=== PATIENT | female | born 1975 | race Caucasian/White ===

== ENCOUNTER 2021-01-01 16:18 | Outpatient (CLI) | payer OTHER, SELFPAY ==
--- NOTE | ~2021-01-01 | MM_ITS ---
EXAMINATION: MM screening leann BI w yajaira HISTORY: Screening TECHNIQUE: Craniocaudal and mediolateral oblique 3-D tomosynthesis images were obtained and synthetic 2-D images were generated. CAD analysis was submitted and interpreted. COMPARISON: No prior mammogram is available for comparison at this institution. BREAST PARENCHYMAL COMPOSITION: There are scattered areas of fibroglandular density. FINDINGS: There is no evidence of suspicious mass, calcification, or architectural distortion to sugg est malignancy in either breast. There has been no suspicious interval change. IMPRESSION: 1. No mammographic evidence of malignancy. 2. Recommend routine screening mammography in one year. BI-RADS Category 1: Negative Reviewed, dictated and finalized at location [facility].
== END 2021-01-01 16:19 | disposition home or self-care (01) ==
LOC: ANHIMG 16:21
PROVIDERS: PCP Internal Medicine; Visit Provider Obstetrics & Gynecology
DX: Z12.31 Encounter for screening mammogram for malignant neoplasm of breast (principal)
CPT/HCPCS: 77063; 77067

== ENCOUNTER 2021-04-28 07:39 | Outpatient (RCR) | payer OTHER, SELFPAY ==
[2021-04-28] MEDS: diphenhydrAMINE HCl CAP 25 MG CAPSULE PO (08:12)
[2021-04-28] MEDS: ACETAMINOPHEN 325 MG TABLET 650 MG PO (08:12)
[2021-04-28] MEDS: FAMOTIDINE 20 MG TABLET PO (08:12)
[2021-04-28 08:15] VITALS: BP 105/61; PULSE 61; RESP 18; TEMP 36.6; O2SAT 99
--- NOTE | 2021-04-28 08:18 | PC.NURSE ---
Patient got Tc & Tc COVEverywun vaccine in September 2020.
[2021-04-28 09:32] VITALS: BP 103/63; PULSE 58; RESP 18; TEMP 36.5; O2SAT 100
--- NOTE | 2021-04-29 13:54 | PC.NURSE ---
Called patient to follow-up regarding COVID antibody infusion yesterday. Patient states they are feeling well and denies any side effects at this time.
== END 2021-04-28 12:47 | disposition home or self-care (01) ==
LOC: AMCINF 07:39
PROVIDERS: Referring Provider Obstetrics & Gynecology; Visit Provider Internal Medicine Hematology & Oncology
DX: Z23 Encounter for immunization (principal); U07.1 COVID-19; I10 Essential (primary) hypertension
CPT/HCPCS: A9270; M0243; Q0243

== ENCOUNTER 2023-08-15 09:31 | Outpatient (CLI) | payer OTHER, SELFPAY ==
--- NOTE | ~2023-08-15 | US_ITS ---
Pelvic ultrasound. Clinical History: Pelvic pain Technique: Realtime transabdominal and transvaginal scanning of the pelvis was performed. Color flow Doppler and Doppler spectral analysis were performed. Findings: The uterus is anteverted. The endometrial stripe has a thickness of [address] Th ere is an 8 mm echogenic mass or focal lesion near the fundus. The right ovary measures 3.6 x 1.6 x 1.9 cm. No significant right ovarian or adnexal mass is seen. The left ovary measures 2.7 x 2.0 x 2.4 cm. No significant left ovarian or adnexal mass is seen. There is no evidence of free fluid in the cul de sac. Impression: IUD in place. 8 mm hyperechoic mass lesion in the fundus, possibly atypical fibroid. Reviewed, dictated and finalized at [facility]. AP BAG SEWER Impression: IUD in place. 8 mm hyperechoic mass lesion in the fundus, possibly atypical fibroid.
== END 2023-08-15 09:32 | disposition home or self-care (01) ==
PROVIDERS: PCP Family Medicine; Visit Provider Obstetrics & Gynecology
DX: R10.84 Generalized abdominal pain (principal); Z97.5 Presence of (intrauterine) contraceptive device
CPT/HCPCS: 76830; 76856